=== PATIENT | female | born 1940 | race Caucasian/White ===

== ENCOUNTER → 2017-05-02 | Outpatient (CLI) | payer OTHER | LOC: FIMAGING 08:54 | PROVIDERS: ATTEND Internal Medicine | DX: Z12.31 Encounter for screening mammogram for malignant neoplasm of breast (principal) | CPT/HCPCS: G0202 ==

== ENCOUNTER → 2017-07-02 | Outpatient (CLI) | payer OTHER | LOC: FIMAGING 15:00 | PROVIDERS: ATTEND Internal Medicine | DX: Z13.820 Encounter for screening for osteoporosis (principal); M81.0 Age-related osteoporosis without current pathological fracture; Z78.0 Asymptomatic menopausal state ==

== ENCOUNTER 2017-09-14 07:56 | Observation (INO) | payer OTHER ==
[2017-09-14] MEDS ORDERED: PHENAZOPYRIDINE HCL 100 MG TAB PO ONE (08:27)
[2017-09-14] MEDS ORDERED: ceFAZolin 2 GM/SWFI 2 GM/20 ML SYR IVP ONE (08:27)
[2017-09-14] MEDS ORDERED: LIDOCAINE 1% 2 ML INJ ID PRN (08:42)
[2017-09-14] MEDS ORDERED: LR 1,000 ML IV ONE (08:42)
[2017-09-14] MEDS ORDERED: PHENAZOPYRIDINE HCL 200 MG TAB PO ONE (08:45)
[2017-09-14] MEDS ORDERED: LIDOCAINE 1% 2 ML INJ ONE (08:56)
--- NOTE | 2017-09-14 09:07 | PDHPUP ---
History & Physical Update H&P update statement: This history and physical update is based on an assessment of the patient which was completed after admission or registration (within 24 hours), but prior to the surgery/procedure. H&P update: H&P reviewed & patient examined, no change in patient's condition since H&P completed
[2017-09-14] MEDS ORDERED: BUPIVACAINE 0.5% 30 ML SDV ONE (09:16)
[2017-09-14] MEDS ORDERED: MIDAZOLAM 2 MG/2 ML VIAL IVP ONE (09:20)
--- NOTE | 2017-09-14 09:20 | PDANEPAE ---
ANE History of Present Illness 76 yo for laparscopic hysterectomy ANE Past Medical History - Cardiovascular History Hx Hypertension: No Hx Arrhythmias: No Hx Chest Pain: No Hx Coronary Artery / Peripheral Vascular Disease: No Hx CHF / Valvular Disease: No Hx Palpitations: No - Pulmonary History Hx COPD: No Hx Asthma/Reactive Airway Disease: No Hx Recent Upper Respiratory Infection: No Hx Oxygen in Use at Home: No Hx Sleep Apnea: No Sleep Apnea Screening Result - Last Documented: Negative - Neurologic History Hx Cerebrovascular Accident: No Hx Seizures: No Hx Dementia: No - Endocrine History Hx Diabetes: No - Renal History Hx Renal Disorders: Yes Renal History Comment: UA INCONT./FREQUENCY - Liver History Hx Hepatic Disorders: No - Neurological & Psychiatric Hx Hx Neurological and Psychiatric Disorders: No - Cancer History Hx Cancer: Yes Cancer History Comment: BREAST. SKIN - Congenital Disorder History Hx Congenital Disorders: No - GI History Hx Gastrointestinal Disorders: No - Other Health History Other Health History: OSTEOPOROSIS. ELBOW TENDONITITIS - Chronic Pain History Chronic Pain: No - Surgical History Prior Surgeries: MALORIE CATARACT. TONSILLECTOMY. BREAST BX. COLONOSCOPY ANE Review of Systems Review of Systems: - Exercise capacity METS (RN): 4 METS ANE Patient History - Allergies Allergies/Adverse Reactions: erythromycin base Allergy (Verified 09/01/17 15:22) TONGUE SWELLING - Home Medications Home medications: home medication list seen and reviewed Home Medications: ASPIRIN DAILY 09/01/17 [Last Taken 09/07/17] Fosamax 70 MG (*) ONCE 09/01/17 [Last Taken 09/11/17] Herbal Drugs DAILY 09/01/17 [Last Taken 09/07/17] - NPO status NPO Since - Liquids (Date): 09/14/17 NPO Since - Liquids (Time): 06:00 NPO Since - Solids (Date): 09/13/17 NPO Since - Solids (Time): 19:00 - Anes Hx Anes Hx: no prior problems - Smoking Hx Smoking Status: Never smoked - Family Anes Hx Family Hx Anesthesia Complications: NEG ANE Labs/Vital Signs - Vital Signs Blood Pressure: 149/86 Heart Rate: 75 Respiratory Rate: 16 O2 Sat (%): 98 Height: 5 ft 6 in Weight: 68.039 kg ANE Physical Exam - Airway Neck exam: FROM Mallampati Score: Class 2 Mouth exam: normal dental/mouth exam - Pulmonary Pulmonary: no respiratory distress - Cardiovascular Cardiovascular: regular rate and rhythym - ASA Status ASA Status: II ANE Anesthesia Plan Anesthesia Plan: general endotracheal anesthesia
[2017-09-14] MEDS ORDERED: PROPOFOL/EMULSION 500 MG/50 ML BOTTLE IV ONE ×2 (09:30→11:15)
[2017-09-14] MEDS ORDERED: fentaNYL 250 MCG/5 ML INJ ONE (09:30)
[2017-09-14] MEDS ORDERED: LIDOCAINE 2% 100 MG/5 ML SYR ONE (09:31)
[2017-09-14] MEDS ORDERED: ROCURONIUM 100 MG/10 ML VIAL ONE (09:31)
[2017-09-14] MEDS ORDERED: METOCLOPRAMIDE 10 MG/2 ML VIAL ONE (09:32)
[2017-09-14] MEDS ORDERED: DEXAMETHASONE 4 MG/ML VIAL ONE (09:32)
[2017-09-14] MEDS ORDERED: SUGAMMADEX SODIUM 200 MG/2 ML VIAL IVP ONE (11:22)
[2017-09-14] MEDS ORDERED: NALOXONE HCL 0.4 MG/ML INJ IVP PRN (11:25)
[2017-09-14] MEDS ORDERED: HYDROmorphONE/DILAUDID 1 MG/ML INJ IVP PRN ×2 (11:25→11:43)
[2017-09-14] MEDS ORDERED: ONDANSETRON 4 MG/2 ML VIAL IVP PRN ×2 (11:25→11:43)
[2017-09-14] MEDS ORDERED: fentaNYL 100 MCG/2 ML INJ IVP PRN (11:25)
[2017-09-14] MEDS ORDERED: PROMETHAZINE HCL 25 MG/ML INJ IVP PRN (11:43)
[2017-09-14] MEDS ORDERED: DIAZEPAM 10 MG/2 ML SYR IVP PRN (11:43)
--- NOTE | 2017-09-14 11:48 | POSTOPPROG ---
Post Op Note Date of Operation: 09/14/17 Surgeon: Bebeto Kirkland Transcribing Machine Mechanic: Ave Medellin Anesthesia: GET(General Endotracheal) Pre-op Diagnosis: uterovaginal prolapse Post-op Diagnosis: same Procedure: robtic hyst/bso, sacrocolpopexy, cysto Findings: ureters function at end of case Inf/Abcess present in the surg proc area at time of surgery?: No EBL: Minimal Complications: None
[2017-09-14] MEDS ORDERED: LR 1,000 ML IV SCH (12:00)
[2017-09-14] MEDS ORDERED: fentaNYL 100 MCG/2 ML INJ ONE (12:13)
[2017-09-14] MEDS ORDERED: DIAZEPAM 10 MG/2 ML SYR ONE (12:15)
--- NOTE | 2017-09-14 12:24 | POSTANESTH ---
Post Anesthetic Evaluation Cardiovascular Status: Normal, Stable Respiratory Status: Normal, Stable Level of Consciousness/Mental Status: Can Participate in Eval Pain Control: Adequate, Prn Tx Ordered Nausea/Vomiting Control: Adequate, Prn Tx Ordered Complications Possibly Related to Anesthesia: None Noted
[2017-09-14] MEDS: KETOROLAC 15 MG/1 ML SDV IVP SCH ×2 (14:06→19:37)
[2017-09-14] MEDS: SIMETHICONE 80 MG TAB CHEW PO SCH ×3 (16:47→23:09)
[2017-09-14] MEDS: HYDROCODONE/APAP 5/325 TAB PO PRN ×2 (17:32→21:20)
[2017-09-14 17:44] VITALS: RESP 16
--- NOTE | 2017-09-14 19:21 | GOP ---
[f rep st] OPERATIVE REPORT DATE OF OPERATION: 09/14/2017 SURGEON: Bebeto Kirkland MD EXPRESSIVE MUSIC THERAPIST: Ave Medellin CFA. ANESTHESIA: General. PREOPERATIVE DIAGNOSIS: 1. Cystocele. 2. Rectocele. 3. Uterine prolapse. POSTOPERATIVE DIAGNOSIS: 1. Cystocele. 2. Rectocele. 3. Uterine prolapse. PROCEDURE PERFORMED: 1. Robotic-assisted laparoscopic hysterectomy, bilateral salpingo-oophorectomy. 2. Robotic-assisted laparoscopic sacrocolpopexy. 3. Repair of cystocele and rectocele. 4. Left ureterolysis. FINDINGS: SPECIMENS: Uterus, bilateral tubes, and ovaries. ESTIMATED BLOOD LOSS: Scant. DESCRIPTION OF PROCEDURE: The patient was taken to the operating room where she was identified. General anesthesia was administered and found to be adequate. She was placed in lithotomy position and prepared and draped in normal sterile fashion. A Kilpatrick catheter was placed in her bladder. A 1 cm infraumbilical incision was made with a scalpel. The Veress needle with the CO2 gas flowing was advanced into the peritoneal cavity. The abdomen was then insufflated with carbon dioxide gas. The 12 mm trocar followed by the laparoscope were then inserted. The upper abdomen was unremarkable. She had no bowel adhesions. Two lateral ports were placed on either side under direct visualization. She then was placed in Trendelenburg position and the [place] robot docked on the left side. The instruments were then brought into the abdominal cavity under direct visualization. The left round ligament was divided. The anterior leaf of the broad ligament was incised to the bifurcation of the left common iliac vessels. A window was created in the posterior leaf to skeletonize the infundibulopelvic vessels. They were then cauterized and transected. The anterior lip of the broad ligament was then incised over the left uterine vessels and across the cervix. The bladder was gently dissected off the cervix and upper vagina. The patient's anatomy was somewhat distorted given her significant prolapse. The ureter appeared to be back tracking cephalad before it crossed underneath the uterine artery. To prevent risk of injury of this when cauterizing the uterine vessels, a left ureterolysis was required. The retroperitoneum had already been opened. The ureter was gently dissected free. It was lateralized all the way down to the bladder which then allowed me to transect the uterine vessels without risk of injuring the ureter. The left uterine vasculature was then cauterized and transected. The exact same procedure was performed on the patient's right side. The uterus was then bivalved to aid in removal through the umbilicus. The uterus and upper 3/4 of the cervix were amputated from the lower portion of the cervix with the hot vazquez. This specimen was then placed in the right lower quadrant for later removal. A stent was then placed in the vagina. The bladder was further dissected off the anterior vaginal wall. The rectovaginal space was then entered and the rectum dissected off the posterior vaginal wall and down to the level of the perineal body. Measurements were then obtained and the mesh trimmed to size. The sigmoid colon was then retracted laterally. The peritoneum over the promontory was incised and the fat pad gently dissected off the anterior longitudinal ligament. The peritoneal incision was then extended along the right pericolic gutter. The mesh was brought into the abdominal cavity. Three sutures of 4-0 [place]Rob[place] were used to attach the distal posterior mesh to the perineal body. Two additional rows of [place]Robby sutures were placed posteriorly. Three rows were placed anteriorly to suture the anterior mesh down to the level of bladder neck and laterally to the paravaginal tissue. The stent was then removed. The mesh was placed over the promontory and the tension adjusted. I then scrubbed back into the case to examine the vagina. The tension was further adjusted to resolve the cystocele and rectocele without undue tension on the vagina. Two sutures of 2-0 [place]Robby were used to attach the sacral arm of the mesh to the anterior longitudinal ligament at the level of the upper first sacral vertebral body. Excess mesh was then trimmed. The peritoneum was then closed over the entire mesh. The robot was then undocked. The specimen was removed through the umbilicus. The fascia was closed with 0 Vicryl, skin with 4 Monocryl and surgical adhesive. Cystoscopy was then performed. Both ureters had vigorous jets of urine. There was no evidence of bladder nor urethral injury seen. No mesh nor suture was seen within the bladder nor urethra. No obvious pathology was seen. Vaginal packing was then placed, anesthesia was reversed, and the patient taken to the PACU awake, in stable condition. COMPLICATIONS: None. DISPOSITION: Patient stable to PACU. /[id number]/MODL MTDD
[2017-09-14] MEDS ORDERED: DOCUSATE SODIUM 100 MG CAP PO SCH (21:00)
[2017-09-15] MEDS: KETOROLAC 15 MG/1 ML SDV IVP SCH (02:13)
[2017-09-15] MEDS: HYDROCODONE/APAP 5/325 TAB PO PRN (02:13)
[2017-09-15 08:44] VITALS: PULSE 74
--- NOTE | 2017-09-15 11:50 | GDS ---
[f rep st] DISCHARGE SUMMARY DISCHARGE DIAGNOSIS: Uterovaginal prolapse. PROCEDURES: 1. Robotic-assisted laparoscopic hysterectomy, bilateral salpingo-oophorectomy. 2. Robotic-assisted laparoscopic sacrocervicopexy with mesh. 3. Repair of cystocele and rectocele. HISTORY: This patient suffered from uterovaginal prolapse. She was taken to the operating room on 11/14/2016, where she underwent a supracervical hysterectomy and a sacral colpopexy. Her postoperative course was uneventful. The morning after surgery she was ambulating, voiding, and tolerating a general diet. She was discharged home with ibuprofen and Tylenol for pain. She was to follow up in the office 2 weeks after discharge. /[id number]/MODL
[2017-09-15 13:58] VITALS: BP 137/83; TEMP 97; O2SAT 96
== END 2017-09-15 16:02 | disposition home or self-care (01) ==
LOC: F3N 07:56 → FOB 14:03 → UNDODISOB 09-15 10:48
PROVIDERS: ADMIT Obstetrics & Gynecology; ATTEND Obstetrics & Gynecology
DX: N81.4 Uterovaginal prolapse, unspecified (principal)
CPT/HCPCS: 57425; 58571; C1763; J0690; J1100; J1885; J2001; J2250; J2704; J2765; J3010

== ENCOUNTER → 2018-03-17 | Outpatient (CLI) | payer OTHER | LOC: BMCIMAGING 12:37 | PROVIDERS: ATTEND Emergency Medicine | DX: M18.12 Unilateral primary osteoarthritis of first carpometacarpal joint, left hand (principal) ==

== ENCOUNTER → 2018-03-30 | Outpatient (CLI) | payer OTHER | LOC: BMCIMAGING 11:14 | PROVIDERS: ATTEND Physician Assistant | DX: S52.572A Other intraarticular fracture of lower end of left radius, initial encounter for closed fracture (principal); W19.XXXA Unspecified fall, initial encounter ==

== ENCOUNTER 2018-04-03 11:49 | Emergency (ER) | payer OTHER ==
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
[2018-04-03 12:07] VITALS: BP 165/93
== END 2018-04-03 12:17 | disposition home or self-care (01) ==
LOC: EDUNIT#
DX: S00.31XA Abrasion of nose, initial encounter (principal); S80.212A Abrasion, left knee, initial encounter; Z79.82 Long term (current) use of aspirin; W01.198A Fall on same level from slipping, tripping and stumbling with subsequent striking against other object, initial encounter; Y92.89 Other specified places as the place of occurrence of the external cause; Y99.8 Other external cause status; Y93.01 Activity, walking, marching and hiking
CPT/HCPCS: G0390

== ENCOUNTER 2018-04-07 11:11 | Day surgery (SDC) | payer OTHER ==
[2018-04-07] MEDS ORDERED: ceFAZolin 2 GM/SWFI 2 GM/20 ML SYR IVP ONE (11:27)
[2018-04-07] MEDS ORDERED: LR 1,000 ML IV ONE (11:28)
[2018-04-07] MEDS ORDERED: ceFAZolin 2 GM/DEXTROSE 100 ML IV ONE (11:30)
[2018-04-07] MEDS ORDERED: BUPIVACAINE 0.5% 30 ML SDV ONE (11:57)
--- NOTE | 2018-04-07 12:22 | PDANEPAE ---
ANE History of Present Illness 77 year old female for distal radius ORIF. ANE Past Medical History - Cardiovascular History Hx Hypertension: No Hx Arrhythmias: No Hx Chest Pain: No Hx Coronary Artery / Peripheral Vascular Disease: No Hx CHF / Valvular Disease: No Hx Palpitations: No - Pulmonary History Hx COPD: No Hx Asthma/Reactive Airway Disease: No Hx Recent Upper Respiratory Infection: No Hx Oxygen in Use at Home: No Hx Sleep Apnea: No Sleep Apnea Screening Result - Last Documented: Negative - Neurologic History Hx Cerebrovascular Accident: No Hx Seizures: No Hx Dementia: No - Endocrine History Hx Diabetes: No - Renal History Hx Renal Disorders: No Renal History Comment: UA INCONT./FREQUENCY - Liver History Hx Hepatic Disorders: No - Neurological & Psychiatric Hx Hx Neurological and Psychiatric Disorders: No Neurological / Psychiatric History Comment: [facility] - Cancer History Hx Cancer: Yes Cancer History Comment: BREAST. SKIN - Congenital Disorder History Hx Congenital Disorders: No - GI History Hx Gastrointestinal Disorders: No - Other Health History Other Health History: OSTEOPOROSIS. ELBOW TENDONITITIS. bilat abrasions to elbows and knees,palm of right hand - Chronic Pain History Chronic Pain: Yes (generalized body aches) - Surgical History Prior Surgeries: MALORIE CATARACT. TONSILLECTOMY. BREAST BX. COLONOSCOPY. sacropulpexy ANE Review of Systems Review of systems is: negative Review of Systems: - Exercise capacity Exercise capacity: >=4 METS METS (RN): 4 METS ANE Patient History - Allergies Allergies/Adverse Reactions: erythromycin base Allergy (Verified 04/06/18 11:58) TONGUE SWELLING - Home Medications Home medications: home medication list seen and reviewed Home Medications: Alendronate Sodium [Fosamax 70 MG (*)] 09/01/17 [Last Taken 09/11/17] Aspirin [Aspirin 81mg (*)] 09/01/17 [Last Taken 04/02/18] Calcium Carbonate [Oyster Shell Calcium 500 mg (*)] 09/14/17 [Last Taken ] Cholecalciferol Vit D3 [Vitamin D3 2000 units tab (OTC)] 09/14/17 [Last Taken 04/02/18] [place]-3 Fatty Acids [Fish Oil 1000 mg (*)] 09/14/17 [Last Taken 04/02/18] Hydrocodone/APAP 5/325 [Tye 5/325 (*)] 04/06/18 [Last Taken 1 Year Ago ~04/07] - NPO status NPO Status: no food or drink >8 hours NPO Since - Liquids (Date): 04/07/18 NPO Since - Liquids (Time): 09:00 NPO Since - Solids (Date): 04/06/18 NPO Since - Solids (Time): 20:30 - Anes Hx Anes Hx: no prior problems - Smoking Hx Smoking Status: Never smoked Marijuana use: No - Alcohol Use Alcohol Use: Rarely - Family Anes Hx Family Anes Hx: neg - N/A Family Hx Anesthesia Complications: none ANE Labs/Vital Signs - Vital Signs Vital Signs: reviewed preoperatively; see RN documention for details Blood Pressure: 152/98 Heart Rate: 83 Respiratory Rate: 14 O2 Sat (%): 96 Height: 167.64 cm Weight: 67.132 kg ANE Physical Exam - Airway Neck exam: FROM Mallampati Score: Class 2 Mouth exam: normal dental/mouth exam - Pulmonary Pulmonary: no respiratory distress - Cardiovascular Cardiovascular: regular rate and rhythym - ASA Status ASA Status: II ANE Anesthesia Plan Anesthesia Plan: general endotracheal anesthesia Regional Anesthesia: supraclavicular BP NB Total IV Anesthesia: No
[2018-04-07] MEDS ORDERED: fentaNYL 100 MCG/2 ML INJ ONE (12:47)
[2018-04-07] MEDS ORDERED: PROPOFOL/EMULSION 500 MG/50 ML BOTTLE IV ONE (12:47)
[2018-04-07] MEDS ORDERED: BUPIVACAINE/EPI 0.5% 30 ML SDV ONE (13:12)
[2018-04-07] MEDS ORDERED: ONDANSETRON 4 MG/2 ML VIAL ONE (13:16)
[2018-04-07] MEDS ORDERED: ePHEDrine SULFATE 25 MG/5 ML SYR ONE (13:16)
[2018-04-07] MEDS ORDERED: DEXAMETHASONE 4 MG/ML VIAL ONE (13:16)
[2018-04-07] MEDS ORDERED: PHENYLEPHRINE HCL 100 MCG/ML SYR ONE (13:21)
[2018-04-07] MEDS ORDERED: fentaNYL 100 MCG/2 ML INJ IVP PRN (14:30)
[2018-04-07] MEDS ORDERED: oxyCODONE IR 5 MG TAB PO PRN (14:30)
[2018-04-07] MEDS ORDERED: LR 500 ML IV PRN (14:30)
[2018-04-07] MEDS ORDERED: ONDANSETRON 4 MG/2 ML VIAL IVP PRN (14:30)
[2018-04-07] MEDS ORDERED: NALOXONE HCL 0.4 MG/ML INJ IVP PRN (14:30)
[2018-04-07] MEDS ORDERED: ACETAMINOPHEN 500 MG TAB PO PRN (14:30)
[2018-04-07] MEDS ORDERED: HYDROmorphONE/DILAUDID 2 MG/ML INJ IVP PRN (14:30)
--- NOTE | 2018-04-07 15:22 | POSTANESTH ---
Post Anesthetic Evaluation Cardiovascular Status: Normal, Stable, Similar to Pre-Op Cond Respiratory Status: Normal, Stable, Similar to Pre-op Cond. Level of Consciousness/Mental Status: Can Participate in Eval, Alert and Oriented Pain Control: Adequate, Prn Tx Ordered Nausea/Vomiting Control: Adequate, Prn Tx Ordered Complications Possibly Related to Anesthesia: None Noted
[2018-04-07 17:56] VITALS: BP 125/72
--- NOTE | 2018-04-09 11:10 | GOP ---
[f rep st] OPERATIVE REPORT DATE OF OPERATION: 04/07/2018 SURGEON: Jadiel Plascencia MD ANESTHESIA: General. PREOPERATIVE DIAGNOSIS: Left intra-articular distal radius fracture 2 parts. POSTOPERATIVE DIAGNOSIS: Left intra-articular distal radius fracture 2 parts. PROCEDURE PERFORMED: Open reduction, internal fixation of left distal radius fracture of intra-articular 2 parts. FINDINGS: ESTIMATED BLOOD LOSS: 5 mL. INDICATIONS: The patient is a 77-year-old female who sustained this injury in a fall about 3 weeks prior. Her initial x-rays were read as negative on her initial presentation to urgent care, however;, they referred the patient to me for the possible radial styloid fracture based on exam. I had the patient follow up in a week with repeat x-rays. To my own evaluation, showed a likely fracture of the volar lunate facet with distal radius, now with displacement. To better visualize the pattern, a CT scan was ordered, which showed a definite volar lunate facet fracture, now with progressive subluxation of the entire carpus and about 5 mm of displacement of the articular surface. This is specifically an unstable fracture pattern with high likelihood of progression of the subluxation of the wrist joint and the continued pain and dysfunction and surgery is indicated. I discussed with the patient the risks and benefits of the surgery. Risks include pain, bleeding, infection, damage to surrounding structures including nerves, delayed union, nonunion, stiffness, weakness, need for further operations including plate removal. She understood the risks and wished to proceed. DESCRIPTION OF PROCEDURE: The patient in the preoperative holding area. She was given the opportunity to ask questions. All her questions were answered. Consent was signed. Surgical site was marked. She was transferred to the operative suite. Care was taken to pad all bony prominences on the gurney. Time-out was called including surgical and anesthesia teams. The results of the procedure were performed. IV Ancef was given prior to incision. The left upper extremity prepped in usual sterile fashion. Esmarch used to exsanguinate the left upper extremity. The tourniquet was inflated to 250 mmHg. I made a standard incision for a volar Frank approach to the distal radius and modified volar Frank approach to the distal radius was performed. Vital structures were protected at all times. Identified pronator quadratus. The pronator quadratus was carefully peeled off at the sleeve visualizing the distal radius. I visualized the volar lunate fragment. This was a fairly large fragment as it was already 3 weeks out, this fragment had to be mobilized, used the [place] and and a curette to clear the organized hematoma, mobilized the fracture using these techniques. After this was done, reduced the fragment with distraction on the wrist to reduce the carpus and anatomically reduced the fragment. The fragment reduced with a K-wire and then choice of a plate, a 3-hole narrow, carefully placed the plate over the fragment, which was placed several times with fluoroscopy as I wanted maximal buttress of this fragment as this was a fairly small fragment. With the plate positioned, I placed a cortical screw in the shaft to hold the plate to the bone and then I reduced the fragment again to the plate and we held that with a K-wire. I then placed one of the compression locking screws to the fragment to compress the fragment. I placed the other locking screws in the lunate leaflet of the plate. One locking screw placed at the radial side distally as there was no fracture and then 2 other locking screws in the shaft, I checked the final x-rays with fluoroscopy, there was an anatomic reduction. I was very happy with reduction and then checked range of motion of the wrist. The wrist was able to fully flex and extend and the fragment appeared quite stable with this construct. At this point, the tourniquet was let down. All bleeding was controlled. The distal edge of the pronator were repaired over the plate with 2-0 Vicryl and 4-0 nylon was used to close in layers with the final layer being a subcuticular closure. Steri- Strips and a dry, sterile dressing was applied. . Patient placed in a volar slab splint, awakened from general anesthesia and taken to PACU in stable condition. IMPLANTS USED: [employer] distal radius plating system. POSTOP CONDITION: Stable. POSTOPERATIVE PLAN: The patient will follow up with me in 10 to 14 days . Will then follow her in clinic with x-rays to assess healing. /[id number]/MODL MTDD
== END 2018-04-07 17:55 | disposition home or self-care (01) ==
LOC: FSGY 11:11
PROVIDERS: ATTEND Orthopaedic Surgery Hand Surgery
PROC: 0PSJ04Z Reposition Left Radius with Internal Fixation Device, Open Approach (ICD-10-PCS; principal; 2018-04-07 12:45)
DX: S52.572A Other intraarticular fracture of lower end of left radius, initial encounter for closed fracture (principal); W19.XXXA Unspecified fall, initial encounter; M81.0 Age-related osteoporosis without current pathological fracture; Z85.3 Personal history of malignant neoplasm of breast
CPT/HCPCS: C1713; J0690; J1100; J2370; J2405; J2704; J3010

== ENCOUNTER → 2018-05-03 | Outpatient (CLI) | payer OTHER | LOC: FIMAGING 08:54 | PROVIDERS: ATTEND Internal Medicine | DX: Z12.31 Encounter for screening mammogram for malignant neoplasm of breast (principal); Z80.3 Family history of malignant neoplasm of breast ==

== ENCOUNTER → 2018-05-16 | Outpatient (CLI) | payer OTHER | LOC: FIMAGING 14:36 | PROVIDERS: ATTEND Internal Medicine | DX: R92.0 Mammographic microcalcification found on diagnostic imaging of breast (principal) ==

== ENCOUNTER → 2018-05-18 | Outpatient (CLI) | payer OTHER | LOC: BMCIMAGING 08:34 | PROVIDERS: ATTEND Orthopaedic Surgery Hand Surgery | DX: S52.572D Other intraarticular fracture of lower end of left radius, subsequent encounter for closed fracture with routine healing (principal) ==

== ENCOUNTER 2018-06-12 06:32 | Day surgery (SDC) | payer OTHER ==
[2018-06-12] MEDS ORDERED: LR 1,000 ML IV ONE (06:48)
[2018-06-12] MEDS ORDERED: LIDOCAINE 1% 300 MG/30 ML SDV ONE ×2 (08:19→08:40)
[2018-06-12] MEDS ORDERED: METHYLENE BLUE 0.5% 50 MG/10 ML AMP ONE (08:39)
[2018-06-12] MEDS ORDERED: BUPIVACAINE/EPI 0.5% 30 ML SDV ONE (08:39)
[2018-06-12] MEDS ORDERED: NA BICARBONATE 50 MEQ/50 ML VIAL ONE (08:40)
[2018-06-12] MEDS ORDERED: ONDANSETRON 4 MG/2 ML VIAL ONE (10:20)
[2018-06-12] MEDS ORDERED: LIDOCAINE 2% 2 ML INJ ONE ×2 (10:20)
[2018-06-12] MEDS ORDERED: fentaNYL 100 MCG/2 ML INJ ONE (10:20)
[2018-06-12] MEDS ORDERED: PROPOFOL 200 MG/20 ML VIAL ONE (10:20)
[2018-06-12] MEDS ORDERED: DEXAMETHASONE 4 MG/ML VIAL ONE (10:20)
[2018-06-12] MEDS ORDERED: KETOROLAC 30 MG/1 ML SDV ONE (10:21)
[2018-06-12] MEDS ORDERED: MIDAZOLAM 2 MG/2 ML VIAL IVP ONE ×2 (10:23→10:55)
--- NOTE | 2018-06-12 10:25 | PDANEPAE ---
ANE Past Medical History - Cardiovascular History Hx Hypertension: No Hx Arrhythmias: No Hx Chest Pain: No Hx Coronary Artery / Peripheral Vascular Disease: No Hx CHF / Valvular Disease: No Hx Palpitations: No - Pulmonary History Hx COPD: No Hx Asthma/Reactive Airway Disease: No Hx Recent Upper Respiratory Infection: No Hx Oxygen in Use at Home: No Hx Sleep Apnea: No Sleep Apnea Screening Result - Last Documented: Negative - Neurologic History Hx Cerebrovascular Accident: No Hx Seizures: No Hx Dementia: No - Endocrine History Hx Diabetes: No - Renal History Hx Renal Disorders: No Renal History Comment: hx of incontinence- better since surg in 09/2017 - Liver History Hx Hepatic Disorders: No - Neurological & Psychiatric Hx Hx Neurological and Psychiatric Disorders: Yes Neurological / Psychiatric History Comment: anxiety - Cancer History Hx Cancer: Yes Cancer History Comment: BREAST. SKIN - Congenital Disorder History Hx Congenital Disorders: No - GI History Hx Gastrointestinal Disorders: No - Other Health History Other Health History: OSTEOPOROSIS. ELBOW TENDONITITIS. wears glasses - Chronic Pain History Chronic Pain: No - Surgical History Prior Surgeries: 05/30/18 needle breast bx. 04/07/18 left wrist ORIF with Temo. 09/14/17 lap hysterectomy/ bso/ sacrocolpopexy with [facility]ston randolph. MALORIE CATARACT. TONSILLECTOMY. BREAST BX. COLONOSCOPY ANE Review of Systems Review of Systems: - Exercise capacity METS (RN): 4 METS ANE Patient History - Allergies Allergies/Adverse Reactions: erythromycin base Allergy (Verified 06/07/18 11:02) TONGUE SWELLING x1 - 20 yrs ago - Home Medications Home medications: home medication list seen and reviewed Home Medications: Alendronate Sodium [Fosamax 70 MG (*)] 09/01/17 [Last Taken 06/11/18] Aspirin [Aspirin 81mg (*)] 09/01/17 [Last Taken 05/30/18] Herbals/Supplements -Info Only 06/07/18 [Last Taken 06/07/18] - NPO status NPO Since - Liquids (Date): 06/11/18 NPO Since - Liquids (Time): 23:30 NPO Since - Solids (Date): 06/11/18 NPO Since - Solids (Time): 19:00 - Anes Hx Anes Hx: no prior problems - Smoking Hx Smoking Status: Never smoked - Family Anes Hx Family Hx Anesthesia Complications: none ANE Labs/Vital Signs - Vital Signs Blood Pressure: 151/87 Heart Rate: 77 Respiratory Rate: 16 O2 Sat (%): 96 Height: 167.64 cm Weight: 67.132 kg ANE Physical Exam - Airway Neck exam: FROM Mallampati Score: Class 2 Mouth exam: normal dental/mouth exam - Pulmonary Pulmonary: no respiratory distress, no rales or rhonchi, clear to auscultation - Cardiovascular Cardiovascular: regular rate and rhythym, no murmur, rub, or gallop - ASA Status ASA Status: II ANE Anesthesia Plan Anesthesia Plan: GA w LMA
[2018-06-12] MEDS ORDERED: HYDROCODONE/APAP 5/325 TAB PO PRN (10:50)
[2018-06-12] MEDS ORDERED: ACETAMINOPHEN 500 MG TAB PO PRN (10:50)
[2018-06-12] MEDS ORDERED: PROMETHAZINE HCL 25 MG/ML INJ IVP PRN (10:50)
[2018-06-12] MEDS ORDERED: LR 500 ML IV PRN (10:50)
[2018-06-12] MEDS ORDERED: ONDANSETRON 4 MG/2 ML VIAL IVP PRN (10:50)
[2018-06-12] MEDS ORDERED: fentaNYL 100 MCG/2 ML INJ IVP PRN (10:50)
[2018-06-12] MEDS ORDERED: NALOXONE HCL 0.4 MG/ML INJ IVP PRN (10:50)
[2018-06-12] MEDS ORDERED: ePHEDrine SULFATE 25 MG/5 ML SYR ONE (11:22)
[2018-06-12] MEDS ORDERED: PHENYLEPHRINE HCL 100 MCG/ML SYR ONE (11:22)
[2018-06-12] MEDS ORDERED: NEOSTIGMINE METHYLSULFATE 5 MG/5 ML SYR ONE (11:22)
--- NOTE | 2018-06-12 11:46 | POSTANESTH ---
Post Anesthetic Evaluation Cardiovascular Status: Normal, Stable, Similar to Pre-Op Cond Respiratory Status: Normal, Stable, Similar to Pre-op Cond. Level of Consciousness/Mental Status: Can Participate in Eval, Moderately Sleepy Pain Control: Adequate, Prn Tx Ordered Nausea/Vomiting Control: Adequate, Prn Tx Ordered Complications Possibly Related to Anesthesia: None Noted
--- NOTE | 2018-06-12 11:54 | POSTOPPROG ---
Post Op Note Date of Operation: 06/12/18 Surgeon: Rodri Feliz Hand Cultivator: Timothy Harris Anesthesiologist: Dr. Nguyễn Anesthesia: LMA Pre-op Diagnosis: R breast DCIS Post-op Diagnosis: same Procedure: R SLN bx, NL lumpectomy Findings: Frozen negative Inf/Abcess present in the surg proc area at time of surgery?: No EBL: Minimal
[2018-06-12 13:04] VITALS: BP 119/70
--- NOTE | 2018-06-13 10:09 | GOP ---
[f rep st] OPERATIVE REPORT DATE OF OPERATION: 06/12/2018 SURGEON: Ang Feliz MD [place] LAYER: Timothy Harris, whose presence was requested by me and medically necessary for the safe and timely completion of the case. ANESTHESIA: Laryngeal mask anesthesia per Dr. Nguyễn. 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 POSTOPERATIVE DIAGNOSIS: Right-sided ductal carcinoma in situ. PROCEDURE PERFORMED: FINDINGS: The patient had a negative sentinel node on frozen section. ESTIMATED BLOOD LOSS: 20 cc. INDICATIONS: A 77-year-old female with history of calcifications on screening mammogram. Risks and benefits of procedure discussed with patient and her family, their questions were answered. They wis hed to proceed. DESCRIPTION OF PROCEDURE: PROCEDURES: 1. Right-sided sentinel lymph node biopsy. 2. Right-sided needle localization lumpectomy. COMPLICATIONS: None. DRAINS: None. PROCEDURE: The patient was in supine position. After induction of adequate laryngeal mask anesthesi a, the patient is prepped and draped in the standard surgical fashion. The sentinel node was address ed first. After identifying likely presence with the Neoprobe, the area of the right axilla was infi ltrated with 0.5% Marcaine for local anesthesia. An oblique incision was made with #15 blade and car ried down to subcutaneous tissue with Bovie cautery and blunt dissection. The axillary fat pad was t hen entered. Using the Neoprobe, the sentinel lymph node was identified as well as an adjacent node. Lymphatics were clipped and the nodes were sent for frozen section. Frozen section returned negati ve for malignancy. The area was inspected and cauterized for hemostasis. No other lesions were iden tified and the Neoprobe revealed no further radioactivity. The subcutaneous tissue was approximated in layers using 3-0 Vicryl in interrupted fashion. The skin was closed with 4-0 Monocryl in a subcut icular stitch. Wound was segregated for the remainder of the procedure. The area next to the needle was infiltrated with 0.5% Marcaine for local anesthesia. An oblique inci pratik was made with a #15 blade and carried down to subcutaneous tissue with Bovie cautery and blunt d issection. The area around the needle was excised entirely using sharp dissection. The hematoma was contained completely and particular attention was paid to the posterior and inferior aspects of the mass. This was excised and then painted for orientation using the standard matrix. The cavity was t hen clipped. It was irrigated and aspirated. Hemostasis was achieved with cautery. The subcutaneou s tissue was approximated in layers using 3-0 Vicryl in interrupted fashion. The skin was closed wit h 4-0 Monocryl in a subcuticular stitch. Wounds were sterilely dressed. The patient was extubated a nd taken to PACU in stable condition. /[id number]/MODL
== END 2018-06-12 13:15 | disposition home or self-care (01) ==
LOC: FSGY 06:32
PROVIDERS: ATTEND Surgery
PROC: 0HBT0ZZ Excision of Right Breast, Open Approach (ICD-10-PCS; principal; 2018-06-12 10:30)
PROC: 3E0W3HZ Introduction of Radioactive Substance into Lymphatics, Percutaneous Approach (ICD-10-PCS; principal; 2018-06-12 10:30)
PROC: 07B50ZZ Excision of Right Axillary Lymphatic, Open Approach (ICD-10-PCS; principal; 2018-06-12 10:30)
DX: D05.11 Intraductal carcinoma in situ of right breast (principal); F41.9 Anxiety disorder, unspecified; M81.0 Age-related osteoporosis without current pathological fracture
CPT/HCPCS: 19301; 38525; 38792; A9520; J1100; J1885; J2250; J2370; J2405; J2704; J2710; J3010; Q9968

== ENCOUNTER → 2018-12-21 | Outpatient (CLI) | payer OTHER | LOC: BMCIMAGING 07:53 | PROVIDERS: ATTEND Orthopaedic Surgery | DX: M17.11 Unilateral primary osteoarthritis, right knee (principal) ==

== ENCOUNTER → 2019-05-04 | Outpatient (CLI) | payer OTHER | LOC: FIMAGING 08:28 ==